=== PATIENT | male | born 1945 | race Caucasian/White ===

== ENCOUNTER 2017-08-28 09:39 | Inpatient (IN) | payer MEDICARE, OTHER ==
[~2017-08-28] VITALS: Ht 172.7 cm; Wt 96.6 kg
[~2017-08-28 09:39] MED LIST: LISINOPRIL20 MG PO; NORVASC5 MG PO; SIMVASTATIN40 MG PO; TRIAMTERENE-HC1 EAC3 PO; TYLENOL325 MG PO; VITAMIN D32000 UNI1 PO; ZITHROMAX500 MG PO
[2017-09-05] MEDS ORDERED: METFORMIN HCL500 M2 PO (11:42)
--- NOTE | 2017-09-05 13:04 | NUR ---
PT HERE TODAY FOR PREADMISSION APPOINTMENT. PT IS SCHEDULED TO HAVE A RIGHT TOTAL KNEE REPLACMENT ON 09/09/17. PT STATES HIS [facility] WILL BE HIS TRANSPORTATION WHEN HE IS DISCHARGED AND TO HIS APPOINTMENTS AT THE [facility] FOR PHYSICAL THERAPY. HE STATES HE HAS ATTENDED HIS PREOP APPT WITH PHYSICAL THERAPY EARLIER LAST MONTH. PT REPORTS HAVING ONE STEP INTO THE HOME AND MULTIPLE STEPS ONCE IN THE HOME. IT IS A THREE STORY HOME BUT HIS BEDROOM AND MAIN LIVING AREA ARE ON THE FIRST FLOOR. HE DOES HAVE A FRONT WHEELED WALKER AND WILL BRING IT TO THE HOSPITAL ON ADMISSION. HE HAS A WALK IN SHOWER AND TALL TOILET. HE DOES NOT HAVE A SHOWER CHAIR/BENCH OR A HAND HELD SHOWER HEAD BUT WILL BE LOOKING INTO OBTAINING THESE ITEMS.
--- NOTE | 2017-09-09 08:48 | NUR ---
09/09/17 0848 Elida Nova PT AWAKE AND REPORTS "NO PAIN". PT RESTING QUIETLY.
--- NOTE | 2017-09-09 09:35 | NUR ---
PATIENT ARRIVED TO MED SURG. DR. PICKARD CONSULT ADDED TO COMPUTER. SPINAL ANESTHESIA IS IN EFFECT AND PATIENT DENIES PAIN. SIPS OF WATER AND NO NAUSEA NOTED. SCD, KRYO CUFF, HEEL PROTECTORS, AND KNEE HIGH TAURUS HOSE ON. BP IS 108/55 AND NORMAL SYSTOLIC BASELINE IS 140'S. IVF INFUSING TO RIGHT HAND AT 100ML/HOUR. RT NOTIFIED THAT PATIENT IS ON 2L OF O2 AND PULSE OX. RIGHT KNEE DRESSING IS CDI.
--- NOTE | 2017-09-09 10:34 | NUR ---
PATIENT HAS GROSS MOVEMENT TO FEET, BILATERALLY. PATIENT DENIES PAIN. IV TRANSEXEMIC ACID IS INFUSING FOR 15 MINUTES. BP IS IMPROVING TO 127/61.
--- NOTE | 2017-09-09 11:18 | NUR ---
PT HAS TWO VISITORS AT BEDSIDE. REPORTS NO PAIN. VSS. BP INCREASING TO "PATIENT NORMAL". SBP 134. PT AWAKE AND ALERT, BUT SLIGHTLY DROWSY. NO NEEDS AT THIS TIME. CRYOCUFF IN PLACE. ABLE TO MOVE TOES AND LEGS. SENSATION INTACT IN LOWER EXTREMITIES. NO NAUSEA.
--- NOTE | 2017-09-09 12:38 | NUR ---
PT DROWSY. PAIN CONTROLLED NOW. VSS. 2L [address] WILL ORDER LUNCH FOR PATIENT. NO NAUSEA. ANESTHESIA IN TO SEE PT NOW.
--- NOTE | 2017-09-09 13:54 | NUR ---
PT STOOD AT SIDE OF BED AND ATTEMPTED TO VOID. UNABLE. WILL BLADDER SCAN AFTER NAUSEA SUBSIDES. ZOFRAN GIVEN FOR NAUSEA. LYING IN BED NOW WITH AT BEDSIDE.
--- NOTE | 2017-09-09 14:05 | NUR ---
ATTEMPTED TO CALL DR BOLTON TO NOTIFY OF PAIN NOT BEING CONTROLLED WITH AVAILABLE PRN PAIN MEDICATIONS. REFUSED TYLENOL. REPORTS "VICODIN IS THE ONLY THING THAT HELPS". NOTIFIED DR PICKARD. WILL TRY DR BOLTON AGAIN THIS AFTERNOON.
--- NOTE | 2017-09-09 14:14 | NUR ---
DR. PICKARD IN TO SEE PATIENT. SCOPALAMINE PATCH REMOVED FROM BEHIND RIGHT EAR, PER DR. PICKARD.
--- NOTE | 2017-09-09 14:22 | NUR ---
PATIENT BLADDER SCANNED FOR 281 ML
--- NOTE | 2017-09-09 14:55 | NUR ---
PT IN ROOM WORKING WITH PATIENT. FRESH ICE WATER AND ICE IN CRYO. NO OTHER NEEDS AT THIS TIME.
--- NOTE | 2017-09-09 15:09 | NUR ---
PT HAVING NAUSEA. REGLAN GIVEN NOW. ZOFRAN GIVEN BEFORE 1400. WORKING WITH PHYSICAL THERAPY NOW.
[2017-09-09] MEDS ORDERED: THERAPEUTIC-M1 EAC3 PO (16:14)
--- NOTE | 2017-09-09 16:59 | NUR ---
PATIENT SITTING UP IN BED EATING DINNER. CALL BUTTON IN REACH. IN ROOM. NO OTHER NEEDS AT THIS TIME.
--- NOTE | 2017-09-09 17:22 | NUR ---
PT UNABLE TO VOID. BLADDER SCAN FOR 289ML. NOT DRINKING MUCH FLUIDS. ENCOURAGED TO TAKE PO FLUIDS MORE FREQUENTLY. BATTLING SOME NAUSEA WITH MOVEMENT.
--- NOTE | 2017-09-09 17:47 | NUR ---
ACCU CHECKS. CONTINUOUS PULSE OX. 2L O2 VIA NC. ALETHEAFRAN & REGLAN FOR NAUSEA WHEN CHANGING POSITION TO SIT/STAND. DUE TO VOID. 1/2 NS @ 100. BLADDER SCAN AT 1730 = 289ML. ENCOURAGE PO INTAKE OF FLUIDS. ANCEF X2 MORE. TORADOL FOR PAIN. EPIDURAL UP AT 0800 TOMORROW. UNABLE TO AMBULATE WITH PHYSICAL THERAPY D/T NAUSEA/VOMITING.
--- NOTE | 2017-09-09 18:00 | NUR ---
PATIENT SITTING UP IN BED. IN ROOM. FRESH ICE WATER GIVEN. ICE IN CRYO. CALL BUTTON IN REACH. NO OTHER NEEDS AT THIS TIME.
--- NOTE | 2017-09-09 19:30 | NUR ---
UPDATED DR PICKARD AND CROW ON INABILITY TO VOID. 1L LR BOLUS ORDERED BY DR PICKARD. DR MARIA ON BOARD WITH PLAN. CONTINUE TO MONITOR UNTIL >500CC IN BLADDER.
--- NOTE | 2017-09-09 20:47 | NUR ---
PT LAYING IN BED WATCHING TV. NO APPARENT DISTRESS AT THIS TIME. DENIES PAIN. ALERT AND ORIENTED X4. DENIES URGE TO VOID. BLADDER SCAN SHOWS 352 IN BLADDER. PT COMPLAINS OF DIZZINESS WHEN MOVING HIS HEAD, BUT REPORTS THAT IT IS BETTER THAN BEFORE. FLAT AFFECT. ANSWERS QUESTIONS APPROPRIATLY. DRESSING TO RIGHT KNEE IS CLEAN DRY AND INTACT, NO SHADOWING. TEDS, SCD'S, HEEL PROTECTORS, CRYO CUFF IN PLACE. CRYO CUFF FILLED WITH ICE. FRESH ICE WATER AT BEDSIDE. CALL LIGHT IN REACH. NO FURTHER NEEDS AT THIS TIME. AT BEDSIDE.
--- NOTE | 2017-09-09 21:16 | NUR ---
PT STOOD AT BEDSIDE TO ATTEMPT VOIDING, NO URINE OUTPUT AT THIS TIME. PT BECAME VERY NAUSEOUS AFTER HE SAT DOWN, HAD 300MLS EMESIS. GAVE REGLAN FOR NAUSEA. WILL CONTINUE TO MONITOR PT.
--- NOTE | 2017-09-09 23:41 | NUR ---
pt up to attempt to void, tolerating standing with walker at bedside well. pt unable to void. bladder scan showed 489mls. placed gallo. gallo put out 650mls of orange colored urine right away. pt in bed. denies pain. denies nausea. fresh ice water given. call light in reach. all dr chavez orders in place. no further needs.
--- NOTE | 2017-09-10 01:38 | NUR ---
PT APPEARS TO BE SLEEPING. RR WNL AND UNLABORED. LIGHTS AND TV OUT IN ROOM.
--- NOTE | 2017-09-10 02:52 | NUR ---
PT WOKE WHEN ENTERING ROOM. CONTINUES TO DENY PAIN AND NAUSEA. GAVE SCHEDULED TORADOL AND EDUCATED PT ON PAIN MANAGMENT AND THE IMPORTANENCE LETTING THE RN KNOW SOON HE STARTS TO HAVE PAIN. PT APPEARS TO BE FEELING BETTER, TALKING AND JOKING WITH NURSE. CRYO CUFF RE-FILLED WITH ICE. OUTPUT IS QUANTITY SUFFICIENT AND PT IS TAKING PO WELL WITH NO NAUSEA. IV FLUIDS DISCONTINUES. PT HAS NO FURTHER NEEDS AT THIS TIME. CALL LIGHT IN REACH.
--- NOTE | 2017-09-10 04:30 | NUR ---
PT APPEARS TO BE SLEEPING. RR WNL AND UNLABORED.
--- NOTE | 2017-09-10 05:49 | NUR ---
PLACED ANGEL EARLY IN SHIFT DUE TO PT UNABLE TO VOID. ANGEL DRAINING QUANTITY SUFFICIENT. PAIN WELL CONTROLLED WITH SCHEDULED TORADOL, RATING PAIN AT 0/10 ALL SHIFT. REGLAN GIVEN X1 BEGINNING OF SHIFT FOR NAUSEA WHEN STANDING AT BEDSIDE, NO NAUSEA SINCE. DRESSING IS CLEAN DRY AND INTACT, NO SHADOWING. ALL DR MARIA ORDERS IN PLACE OVERNIGHT. PT PLEASENT, ALERT AND ORIENTED X4, AND COOPERATIVE.
--- NOTE | 2017-09-10 07:06 | NUR ---
DC'D JEANNE. PT TOLERATED WELL. GAVE FRESH ICE WATER. CALL LIGHT IN REACH. NO NAUSEA. DENIES PAIN. ORDERED BREAKFAST.
--- NOTE | 2017-09-10 07:45 | NUR ---
PATIENT SITTING UP IN BED EATING BREAK FAST. IN ROOM. TALKED TO PATIENT ABOUT GETTING UP TO THE CHAIR AND WASHING UP AFTER EATING. NO OTHER NEEDS AT THIS TIME.
--- NOTE | 2017-09-10 08:17 | OR ---
[facility] [address], [place] [address] Signed DATE OF OPERATION: 09/09/2017 SURGEON: Jin Tavares MD PREOPERATIVE DIAGNOSIS: Degenerative joint disease, right knee. POSTOPERATIVE DIAGNOSIS: Degenerative joint disease, right knee. PROCEDURE PERFORMED: Right total knee replacement with computer navigation. INTERNET SYSTEMS ADMINISTRATOR: Iesha Carrington PA-C. Iesha was present for the entire procedure, was critical for positioning, retraction, and wound closure. IMPLANTS: Nitin Triathlon size 6 femur, size 5 tibia, 13 mm insert and 35 patella. BRIEF HISTORY: Yoel is a 72-year-old gentleman with progressive worsening of osteoarthritis in both knees. He elected to proceed with the right knee first. Risks, benefits and alternatives were discussed with him at length. DESCRIPTION OF PROCEDURE: He was taken to the operating room. After par conference, he was placed on the operating room table. All downside pressure points were well padded. After adequate anesthesia, his leg was placed in a well-padded leg uriarte and placed on a hip bump. The leg was then prepped and draped in a standard sterile fashion. The leg was exsanguinated with Esmarch bandage. Tourniquet inflated to 250 mmHg. Standard anterior approach through a curved incision was taken through the skin and subcutaneous tissue. Median parapatellar arthrotomy was performed. The infrapatellar fat pad was excised. The MCL was elevated to sleeve around the posterior medial corner. The menisci were removed. The ACL was transected. PCL was found to be in good shape. The knee was flexed. The navigation guide was then pinned to the distal femur and the femur was registered with the computer. The distal femoral cutting guide was then pinned in neutral alignment and the distal femoral cut was made. Distal femur sized to a 6. Osteophytes were removed. The AP cutting block was aligned with the epicondylar axis and the anterior, posterior and chamfer cuts were made. Attention was turned to the Electronically Signed By: JIN TAVARES MD 09/10/17 0817 PATIENT NAME: YOEL PALOMINO OPERATIVE REPORT DATE OF : 47 PHYSICIAN: JIN TAVARES MD REPORT #: [id number] REPORT IS CONFIDENTIAL AND NOT TO BE RELEASED WITHOUT AUTHORIZATION [facility] [address] [place], [place] [address] Signed proximal tibia. Navigation guide again was pinned to the proximal tibia and the tibia was registered with the computer. The cutting block was then set for 2 mm removal of the medial side. Tibial cut was made with care taken to protect the patellar tendon and the MCL. Posterior release performed off the femur. Posterior osteophytes were removed. The flexion-extension gaps were sized, found to be symmetric at 13 mm. The bone was pulse lavaged, packed with dry Ray-Shanice and cement was mixed. The implants were obtained and the cement was mixed and placed on the implants and the bone surfaces. Tibia was impacted into position first followed by the polyethylene. All excess cement was removed. The femur was then impacted into position and the knee was extended and nicely loaded. Again excess cement was removed. The patella was clamped and any remaining cement was removed. The cement was allowed to harden for 13 minutes. Knee was then flexed and the remaining cement was removed using osteotomes. The periarticular soft tissues were injected with 100 mL ropivacaine and Toradol mixture. The arthrotomy was then closed using #2 Stratafix, the subcutaneous tissue with 1 Stratafix and the skin with miguel. The wound was dressed with a Mepilex Ag dressing, ABD and Trevon wrap. He tolerated the procedure well. All sponge, needle, and instrument counts were correct. Jin Tavares MD BA/MODL /[id number] Electronically Signed By: JIN TAVARES MD 09/10/17 0817 PATIENT NAME: YOEL PALOMINO MADDIE OPERATIVE REPORT DATE OF : 47 PHYSICIAN: JIN TAVARES MD REPORT #: [id number] REPORT IS CONFIDENTIAL AND NOT TO BE RELEASED WITHOUT AUTHORIZATION
--- NOTE | 2017-09-10 08:45 | NUR ---
AT BEDSIDE. PT SITTING UP IN BED. NO NAUSEA NOW. ZOFRAN GIVEN PROPHYLACTICALLY FOR PHYSICAL THERAPY. NO PAIN NOW. ATE 100% OF BREAKFAST. NO DRAINAGE ON DRESSING. SCDs, TEDs IN PLACE.
--- NOTE | 2017-09-10 09:39 | NUR ---
PATIENT UP TO CHAIR WITH ONE PERSON ASSIST WITH FWW. BED BATH COMPLETE. ORAL CARE DONE. LINENS CHANGED. RT IN ROOM TO SEE PATIENT. NO OTHER NEEDS AT THIS TIME.
--- NOTE | 2017-09-10 10:13 | NUR ---
PT WORKING WITH PHYSICAL THERAPY AT 1000. AMBULATING IN HALLS. APPEARS TO HAVE GOOD PAIN CONTROL AND STEADY WHEN WALKING.
--- NOTE | 2017-09-10 12:16 | NUR ---
PATIENT SITTING UP IN CHAIR READING THE NEWSPAPER. ICE IN CRYO. NO OTHER NEEDS AT THIS TIME. CALL BUTTON IN REACH.
--- NOTE | 2017-09-10 13:59 | NUR ---
PT SITTING IN CHAIR-KNEE ICED. HE'S ALERT, ORIENTED AND SUPPORTED BY HIS . IT TOOK A MOMENT, BUT GOT HIM INTO A CONVERSATION. HE SAYS HE HAS NO PAIN, EVEN AFTER P.T. ONE MORE SESSION THIS AFTERNOON. EXPRESS THAT HE AND HIS ARE VERY PLEASED WITH THE CARE HERE AT [facility]. SHE COMMENTED ON HOW GOOD THE CAFETERIA FOOD IS. PT SAYS HE IS READY TO GO HOME-HE IS PLANNING ON TOMORROW. I EXTENDED A BLESSING, WILL CONTINUE TO FOLLOW
--- NOTE | 2017-09-10 14:40 | NUR ---
PATIENT SITTING UP IN CHAIR. FRESH ICE WATER GIVEN. CALL BUTTON IN REACH. NO OTHER NEEDS AT THIS TIME.
--- NOTE | 2017-09-10 17:39 | NUR ---
ACCU CHECKS-- NO COVERAGE NEEDED TODAY. URINATING WELL TODAY. APPROVED BY PHYSICAL THERAPY FOR PATIENT TO HAVE BATHROOM PRIVILEGES. OXYCODONE AND TORADOL SCHEDULED. RH IV S/L. NO NAUSEA TODAY. WORKED WITH PHYSICAL THERAPY X2 TOLERATED WELL. PAIN WELL CONTROLLED. ON ROOM AIR. RIGHT KNEE DRESSING C/D/I.
--- NOTE | 2017-09-10 18:30 | NUR ---
PATIENT BACK TO BED WITH STAND BY ASSIST WITH FWW. FRESH ICE WATER GIVEN. ICE IN CRYO. NO OTHET NEEDS AT THIS TIME. IN ROOM. CALL BUTTON IN REACH.
--- NOTE | 2017-09-10 21:11 | NUR ---
PT SITTING UP IN BED, WATCHING TV. ALERT AND ORIENTED X4, PLEASENT DEMEANOR. RATES PAIN AT 2/10, GAVE SCHEDULED TORADOL AND OXYCODONE. NO NAUSEA. DRESSING IS CLEAN DRY AND INTACT, NO SHADOWING. ALL DR MARIA ORDERS IN PLACE. ICE IN CRYO CUFF. INCENTIVE SPIROMETER ON BEDSIDE TABLE, PT REPORTS USING THROUGHOUT THE DAY. NO FURTHER NEEDS. CALL LIGHT IN REACH.
--- NOTE | 2017-09-10 23:02 | NUR ---
pt appears to be sleeping. rr wnl and unlabored. lights and tv off in room.
--- NOTE | 2017-09-10 23:41 | NUR ---
GAVE WARM BLANKET PER PT REQUEST. PT DENIES PAIN AT THIS TIME. NO FURTHER NEEDS. IN ROOM. LIGHTS AND TV OFF IN ROOM.
--- NOTE | 2017-09-11 00:48 | NUR ---
PT REPORTS 6/10 PAIN. DILAUDID GIVEN. WILL CONTINUE TO MONITOR. CALL LIGHT AND PERSONAL ITEMS WITHIN REACH.
--- NOTE | 2017-09-11 03:05 | NUR ---
PT STATES "ITS WAY BETTER NOW," IN REGARDS TO PAIN. RATES PAIN AT 2/10. GAVE SCHEDULED OXYCODONE AND TORADOL. PT HAS NO FURTHER NEEDS.
--- NOTE | 2017-09-11 05:25 | NUR ---
CRYO CUFF REFILLED.
--- NOTE | 2017-09-11 05:33 | NUR ---
PT HAD UNEVENTFUL NIGHT. SLEPT WELL. ALERT AND ORIENTED X4, PLEASENT AND COOPERATIVE. SCHEDULED AND PRN X1 PAIN MEDICATIONS COVERED PAIN WELL. NO NAUSEA. VOIDING WELL. AMBULATING WITH FWW AND 1 PERSON ASSIST, TOLERATING VERY WELL, STEADY ON FEET. DRESSING TO RIGHT KNEE IS CLEAN DRY AND INTACT. ALL DR MARIA ORDERS IN PLACE OVERNIGHT. CALLS APPROPRIATLY.
--- NOTE | 2017-09-11 05:47 | NUR ---
PT APPEARS TO BE SLEEPING. RR WNL AND UNLABORED.
--- NOTE | 2017-09-11 08:14 | NUR ---
patient up to chair with stand by assist. in to see patient. hands and face washed. Patient refused bath. Patient eating breakfast. call button in reach. in room. Fresh ice water given. No other needs at this time.
[2017-09-11] MEDS ORDERED: TAMSULOSIN HCL0.4 MG PO (08:18)
[2017-09-11] MEDS ORDERED: XARELTO10 MG PO (08:18)
[2017-09-11] MEDS ORDERED: HYDROMORPHONE HC4 MG PO (08:18)
[2017-09-11] MEDS ORDERED: MIRALAX17 GM PO (08:18)
[2017-09-11] MEDS ORDERED: OXYCODONE HCL5 MG PO (08:18)
--- NOTE | 2017-09-11 08:58 | NUR ---
PATIENT UP IN THE CHAIR RESTING, CRYO CUFF ON THE RIGHT KNEE AND PAIN CURRENTLY AT A 3/10. PATIENT IS DOING WELL AND AM MEDICATION GIVEN AT THIS TIME. IV IN THE HAND DC'D TIP INTACT NO REDDNESS OR SWELLING NOTED.
--- NOTE | 2017-09-11 09:33 | NUR ---
PATIENT UP AMBULATING WITH PHYSICAL THERAPY
--- NOTE | 2017-09-11 09:49 | NUR ---
PATIENT REPORTS NO PAIN AT THIS TIME.
--- NOTE | 2017-09-11 10:15 | NUR ---
PATIENT RESTING IN CHAIR WITH LEGS ELEVATED AND EYES CLOSED. CRYO ON. FRESH ICE WATER GIVEN. IN ROOM. CALL BUTTON IN REACH. NO OTHER NEEDS AT THIS TIME.
--- NOTE | 2017-09-11 11:10 | NUR ---
PATIENT'S BLOOD SUGAR CHECKED AT THIS TIME, NO INSULIN REQUIRED FOR SUGAR LEVEL OF 129, PATIENT IS GETTING UP TO WORK WITH PHYSICAL THERAPY FOR THE SECOND TIME TODAY, HE REPORTS NO PAIN AT THIS TIME.
--- NOTE | 2017-09-11 11:50 | NUR ---
PATIENT GIVEN D/C INSTRUCTIONS, QUESTIONS ANSWERED, PHARMACY HAS BEEN IN TO SPEAK WITH THE PATIENT REGARDING D/C INSTRUCTIONS ALSO.
--- NOTE | 2017-09-11 12:01 | NUR ---
FAXED CHART NOTES TO [facility] PT INCLUDING FACESHEET, ORDER, H AND P, OP NOTE, CONSULT, PROG NOTES, PT AND OT EVAL AND NOTES. CALLED AND TALKED WITH CHANDRIKA AT [facility].
--- NOTE | 2017-09-11 14:47 | NUR ---
CONNECTED WITH PT AND HIS THEY WERE LEAVING. THEY BOTH WERE EXCITED TO BE DC'D AND HEADING FOR HOME. GOD BLESS THEM
== END 2017-09-11 12:15 | disposition home or self-care (01) | DRG 470 ==
LOC: MS 09-09 05:45 → DSVR 09-09 05:45 → MS 09-09 06:45
PROVIDERS: ADMIT Specialist
PROC: 3E0T3BZ Introduction of Anesthetic Agent into Peripheral Nerves and Plexi, Percutaneous Approach (ICD-10-PCS; 2017-09-09)
PROC: 0SRC0J9 Replacement of Right Knee Joint with Synthetic Substitute, Cemented, Open Approach (ICD-10-PCS; principal; 2017-09-10)
DX: M17.11 Unilateral primary osteoarthritis, right knee (principal); I10 Essential (primary) hypertension; E11.9 Type 2 diabetes mellitus without complications; E78.00 Pure hypercholesterolemia, unspecified; G89.18 Other acute postprocedural pain
CPT/HCPCS: 01400; 36415; 64447; 76942; 80048; 85025; 94762; 97110; 97116; 97162; C1713; C1776; J0690; J0735; J1100; J1885; J2250; J2274; J2405; J2704; J2765; J3010; J7120

== ENCOUNTER 2018-10-06 11:07 | Inpatient (IN) | payer MEDICARE, OTHER ==
[~2018-10-06] VITALS: Ht 172.7 cm; Wt 104.3 kg
[~2018-10-06 11:07] MED LIST changes: +HYDROMORPHONE HC4 MG PO; +METFORMIN HCL500 M2 PO; +MIRALAX17 GM PO; +OXYCODONE HCL5 MG PO; +TAMSULOSIN HCL0.4 MG PO; +THERAPEUTIC-M1 EAC3 PO; +XARELTO10 MG PO
[2018-10-07] MEDS ORDERED: LISINOPRIL20 MG PO (11:56)
--- NOTE | 2018-10-07 12:11 | NUR ---
PATIENT HERE TODAY FOR PREADMISSION APPOINTMENT. HE IS SCHEDULED TO HAVE A LEFT TOTAL KNEE ARTHROPLASTY ON 10/20/18. IT IS RECALLED HE HAD A RIGHT TOTAL ARTHROPLASTY ABOUT A YEAR AGO. HIS ZACHARY WILL BE HERE TO TRANSPORT HIM HOME WHEN HE IS DISCHARGED AND TO APPOINTMENTS NEEDED. THEY HAVE ON STEP INTO THE HOME AND MULITIPLE STEPS INSIDE THE HOME TO DIFFERENT LEVELS. HE HAS ACCESS TO A WALKER THAT HE WILL OBTAIN AND DID NOT USE A SHOWER CHAIR OR OTHER ITEMS AFTER HIS LAST SURGERY. HE HAS A WALK IN SHOWER WITH HAND HELD SHOWER HEAD. HE WILL BE TRAVELING TO [place] BEFORE SURGERY SO HE WILL CHECK IN WITH [facility] TODAY TO MAKE HIS APPOINTMENTS. HE WAS INSTRUCTED TO CONTACT DR MARIA OFFICE REGARDING MEDICATIONS TO TAKE DAY OF PROCEDURE. HE REPORTS HAVING TROUBLE WITH LOW BLOOD PRESSURE AFTER HIS LAST JOINT REPLACEMENT. THIS INFORMATION WILL BE SENT TO DR MARIA OFFICE AND CASE MANAGEMENT FOR FURTHER FOLLOW UP.
--- NOTE | 2018-10-20 08:51 | NUR ---
10/20/18 0851 Tatiana Zuniga 0832 PT ARRIVED IN PACU SLEEPY. CRYO CUFF PLACED ON L KNEE PER DR ORDERS. BLOOD SUGAR 151. 0845 PT AWAKE WITH NO C/O'S. SPINAL LEVEL AT T-10.
--- NOTE | 2018-10-20 10:31 | NUR ---
PATIENT RESTING IN BED. IN ROOM. VITAL SIGNS DONE. CALL LIGHT WITHIN REACH. NO OTHER NEEDS AT THIS TIME
--- NOTE | 2018-10-20 12:12 | NUR ---
PATIENT CALLS TO USE BATHROOM. PATIENT WALKS TO BATHROOM USING A WALKER. TWO PERSON ASISSTING. PATIENT BACKS TO BED. PATIENT'S LUNCH ORDERED. CALL LIGHT WITHIN REACH. NO OTHER NEEDS AT THIS TIME
--- NOTE | 2018-10-20 12:31 | NUR ---
PT REPORTS PAIN, BUT NOTHING HE CAN'T HANDLE. HE DECLINED PAIN MEDS MULTIPLE TIMES. PT STATED THAT HE WILL CALL WHEN HE FEELS THE NEED FOR MORE PAIN CONTROL. PT STATES THAT THIS SURGERY FEELS DIFFERENT, NO PROJECTILE VOMITING. [facility] CALLED WITH QUESTIONS ABOUT PT'S ACETAMINIPHEN ORDER. CALL PLACED TO PACU FOR DR MARIA TO CALL [facility]. ORDER FOR IV ACETAMINIPHEN PRN AND PO SCHEDULED, [facility] HAS QUESTIONS.
--- NOTE | 2018-10-20 12:49 | OR ---
[facility] [address] [place], [place] [address] Signed DATE OF OPERATION: 10/20/2018 SURGEON: Jin Tavares MD PREOPERATIVE DIAGNOSIS: Degenerative joint disease, left knee. POSTOPERATIVE DIAGNOSIS: Degenerative joint disease, left knee. PROCEDURE PERFORMED: Left total knee arthroplasty with computer navigation. FLIGHT CONTROL MANAGER: Iesha Carrington PA-C. Iesha was present in critical positioning, retraction, and wound closure. ANESTHESIA: Spinal. BLOOD LOSS: 175 mL. TOURNIQUET TIME: Zero. IMPLANTS: Nitin Triathlon size 6 femur, size 5 tibia, 13 mm insert, and 35 patella. BRIEF HISTORY: Yoel is a 73-year-old gentleman with painful ambulation . He had undergone right total knee with excellent success and wished to proceed with a left. DESCRIPTION OF PROCEDURE: Once consent was obtained, he was taken to the operating room. After adequate anesthesia, he was placed on operating table. All downside pressure points were well padded. The leg was placed in well-padded proximal thigh tourniquet, and prepped and draped in a standard sterile fashion. Standard anterior approach was taken through skin and subcutaneous tissue. All bleeders were cauterized as we went. Median parapatellar arthrotomy was performed and the infrapatellar fat pad was excised. The MCL was Portions of this report were created using voice recognition software. There may be inadvertent computer error. Please read with context in mind. If there are any questions, please contact me. Electronically Signed By: JIN TAVARES MD 10/20/18 1249 PATIENT NAME: YOEL PALOMINO OPERATIVE REPORT DATE OF : 47 REPORT #: [id number] PHYSICIAN: JIN TAVARES MD PCP: NO PRIMARY CARE PHYSICIAN REPORT IS CONFIDENTIAL AND NOT TO BE RELEASED WITHOUT AUTHORIZATION [facility] [address] [place], [place] [address] Signed elevated to sleeve around the posteromedial corner. The anterior horns of menisci were transected and the ACL was transected. The PCL was intact. The knee was then flexed, navigation guide was pinned to the distal femur, and the femur was registered with the computer. The cutting block was then pinned in neutral alignment and the distal femoral cut was made. The distal femur sized to a 6 and all osteophytes were removed. The AP cutting block was then pinned in line with epicondylar axis. The anterior, posterior, and chamfer cuts were made. The attention was then turned to proximal tibia. The navigation guide was pinned to the proximal tibia and the tibia was registered with the computer. The cutting block was then pinned in neutral alignment. The cut was made with care taken to protect the patellar tendon and MCL. The bone was excised as were any meniscal remnants. Posterior osteophytes were removed off the femur and posterior release performed. Flexion-extension gaps were sized and found to be symmetric at 13 mm. The trials were then put on and the knee was extended, and taken through range of motion. He was found to be stable throughout. The patella was cut sized and drilled for 35 patella. The distal femoral drill holes were made in the proximal tibial. Keel punch was used. Bone surfaces were pulse lavaged and packed with a hydrogen peroxide soaked sponge. The cement was mixed and reached proper consistency. It was placed on all implants and all bone surfaces. Tibia was impacted in position first followed by polyethylene. All excess was removed. The femur was then impacted in position. Again, the remaining overflow was removed. The knee was extended and nicely loaded, and the patella was clamped. Again, any overflow was removed. Once the cement had hardened, the knee was flexed. The remaining cement was removed using osteotomes. The capsule and periarticular soft tissues were injected with 100 mL ropivacaine and Toradol mixture. The On-Q pump was then placed percutaneously into the adductor canal from inside the knee. The knee was washed out throughout the procedure. A total of 3 L of antibiotic irrigation was used. The arthrotomy was closed using #2 Stratafix, 0 Stratafix for the subcutaneous tissue, and Dermabond mesh for the skin. The wound was dressed with a GLORIA wound dressing and Trevon wrap. He was taken to the recovery room in satisfactory condition. All sponge, needle, and instrument counts were correct. Jin Tavares MD BA/MODL /[id number] Portions of this report were created using voice recognition software. There may be inadvertent computer error. Please read with context in mind. If there are any questions, please contact me. Electronically Signed By: JIN TAVARES MD 10/20/18 1249 PATIENT NAME: YOEL PALOMINO OPERATIVE REPORT DATE OF : 47 REPORT #: [id number] PHYSICIAN: JIN TAVARES MD PCP: NO PRIMARY CARE PHYSICIAN REPORT IS CONFIDENTIAL AND NOT TO BE RELEASED WITHOUT AUTHORIZATION [facility] [address] [place] [address] Signed Copies: ~ Portions of this report were created using voice recognition software. There may be inadvertent computer error. Please read with context in mind. If there are any questions, please contact me. Electronically Signed By: JIN TAVARES MD 10/20/18 1249 PATIENT NAME: YOEL PALOMINO OPERATIVE REPORT DATE OF : 47 REPORT #: [id number] PHYSICIAN: JIN TAVARES MD PCP: NO PRIMARY CARE PHYSICIAN REPORT IS CONFIDENTIAL AND NOT TO BE RELEASED WITHOUT AUTHORIZATION
--- NOTE | 2018-10-20 13:31 | NUR ---
PATIENT RESTING IN BED. PATIENT WALKS TO USE BATHROOM USIGN A WALKER. ONE PERSON ASSISTING. PATIENT BACKS TO BED. IN ROOM. VITAL SIGNS AND I&O DONE. CALL LIGHT WITHIN REACH. NO OTHER NEEDS AT THIS TIME
--- NOTE | 2018-10-20 14:26 | NUR ---
PT UP WALKING WITH PHYSICAL THERAPY. PT STATED HE ISN'T "HURTING MUCH". PT AGREED TO TAKE ONE OXY TABLET. IV TYLENOL HANGING. PT STATES THIS SURGERY IS "SO MUCH BETTER THAN LAST TIME."
--- NOTE | 2018-10-20 14:45 | NUR ---
PATIENT RESTING IN BED. IN ROOM. CRYO FILLED. CALL LIGHT WITHIN REACH.NO OTHER NEEDS AT THIS TIME
--- NOTE | 2018-10-20 15:37 | NUR ---
PT RESTING AFTER PHYSICAL THERAPY. PT STATED 5MG OXY EFFECTIVE FOR PAIN CONTROL DURING AND AFTER THERAPY. PT STATED NO NAUSEA, NO LIGHTHEADEDNESS, NO ITCHING. CYROCUFF, TAURUS HOSE, ON-Q PUMP, AND SCD IN PLACE. NO NEW DRAINAGE ON DRESSINGS.
--- NOTE | 2018-10-20 16:16 | NUR ---
CALLED DR PICKARD RE: PT ACCUCHECK. DR PICKARD WILL LOOK AT THE CHART AND TAKE CARE OF ORDERS.
--- NOTE | 2018-10-20 17:05 | NUR ---
Medications reconciled using pharmacy records and patient interview. Patient takes metformin ER 1000mg daily, rather than 500mg daily
--- NOTE | 2018-10-20 17:46 | NUR ---
REINFORCED SEAL OF PICCO DRESSING. GREEN LIGHT WAS FLASHING BUT UNIT WAS BUZZING. SEAL REINFORCED AROUND WHERE ON-Q TUBING WAS COILED. GREEN LIGHT CONTINUED TO FLASH INDICATING GOOD SEAL. PT REPORTS NO PAIN AT REST, NO NAUSEA. PT HAS STATED SEVERAL TIMES THAT THIS SURGERY HAS BEEN "MUCH BETTER" THAN THE LAST ONE. PT UP VOIDING WELL.
--- NOTE | 2018-10-20 18:00 | NUR ---
PATIENT RESTING IN BED. VITAL SIGNS AND I&O DONE. CALL LIGHT WITHIN REACH. NO OTHER NEEDS AT THIS TIME
--- NOTE | 2018-10-20 19:00 | NUR ---
CHARGE ROUNDING DONE, PATIENT IN BED. AT BEDSIDE. REVIEWED CALLING FOR ASSISTANCE PRIOR TO AMULATING, PATIENT AGREES TO DO SO. NO CONCERNS AT THIS TIME.
--- NOTE | 2018-10-20 19:05 | NUR ---
BEDSIDE REPORT RECEIVED FROM OFFGOING RN. PT UP TO USE THE BATHROOM AND BACK TO BED DURING REPORT. DENIES FURTHER NEEDS AT THIS TIME. CALL LIGHT WITHIN REACH.
--- NOTE | 2018-10-20 20:30 | NUR ---
PT ASSESSMENT COMPLETE. PT DENIES PAIN, NAUSEA, SOB. PT ALERT AND ORIENTED. PT AT BEDSIDE. PT JOKING WITH WRTIER AND . GLORIA DRESSING TO L KNEE WITH SMALL AMOUNT OF RED SHADOWING PRESENT. ABD AND JAMAR OVER GLORIA. GREEN LIGHT FLASHING ON GLORIA BOX. CMS INTACT. CRYO CUFF TO L KNEE. TEDS, SCDS, AND PRESENT BILATERALLY. PT REQUESTING SNACK, DIET COKE AND SF PUDDING PROVIDED. DM II DIET EDUCATION PROVIDED. PT'S STATES SHE NEVER REALLY LEARNED ABOUT HOW TO CHANGE PT'S DIET FOR DIABETES. PT STATES IT IS NOT AN ISSUE. PT DENIES FURTHER NEEDS AT THIS TIME. CALL LIGHT IN REACH.
--- NOTE | 2018-10-20 22:20 | NUR ---
SCHEDULED TYLENOL ADMINISTERED. PT NOTIFIES SOURCING ANALYST THAT GLORIA BOX FLASHING ORANGE. ORANGE LIGHT NOTED TO BE FLASHING ABOVE AIR LEAK INICATOR. OPSITE ADDED TO DRESSING, AND SUCTION RE-INITIATED. GREEN LIGHT FLASHING AT THIS TIME. INTERMITTENT BUZZING SOUND PRESENT. PT DENIES FURTHER NEEDS. CALL LIGHT IN REACH. SLEEPING ON COUCH IN ROOM.
--- NOTE | 2018-10-20 23:15 | NUR ---
PT ASSESSMENT COMPLETE. PT DENIES PAIN, NAUSEA, OR SOB AT THIS TIME. DRESSING TO L KNEE D/I. SMALL AMOUNT OF RED SHADOWING UNCHANGED FROM PREVIOUS. GREEN LIGHT FLASHING ON PIC BOX, INTERMITTENT BUZZING NOISE PRESENT. CMS INTACT. PT DENIES NUMBNESS OR TINGLING. TEDS, SCD'S BILATERALLY. CRYO TO L KNEE. PT UP TO USE THE BATHROOM AND BACK TO BED WITH 1 PA AND FWW. PT TOLERATED WELL. PT DENIES FURTHER NEEDS AT THIS TIME. CALL LIGHT IN REACH. SLEEPING ON COUCH.
--- NOTE | 2018-10-21 01:45 | NUR ---
PT RESTING IN BED WITH EYES CLOSED. RESPIRATIONS EVEN AND UNLABORED. PT APPEARS TO BE SLEEPING SA02 92%. CALL LIGHT IN REACH. PT'S SLEEPING ON COUCH.
--- NOTE | 2018-10-21 01:56 | NUR ---
V/S AND I&O DONE AND CHARTED BY FLOAT COUTURE ALTERATIONS DRESSMAKER AND THIS COUTURE ALTERATIONS DRESSMAKER. CRYO CUFF REFILLED.
--- NOTE | 2018-10-21 04:11 | NUR ---
PT ASSESSMENT COMPLETE. PT WAKES EASILY WHEN RADIO TESTER ENTERS THE ROOM. PT DENIES PAIN, NAUSEA, OR SOB. DRESSING TO L KNEE CONTINUES D/I. GLORIA BOX FLASHING GREEN, CONTINUES TO MAKE INTERMITTENENT BUZZING SOUND. CMS INTACT, PT DENIES NUMBNESS OR TINGLING. ALL PRECAUTIONS REMAIN IN PLACE. PT DENIES FURTHER NEEDS AT THIS TIME. AWAKE ON COUCH IN ROOM. CALL LIGHT IN REACH.
--- NOTE | 2018-10-21 05:56 | NUR ---
PT SLEPT WELL THIS SHIFT. PAIN WELL CONTROLLED WITH SCHEDULED MEDICATIONS. NO PRN'S REQUIRED THIS SHIFT. PT DENIES NAUSEA, SOB THROUGHOUT THE NIGHT. GLORIA DRESSING D/I WITH SMALL AMOUNT OF RED SHADOWING THAT HAS BEEN UNCHANGED THROUGHOUT THE NIGHT. AIR LEAK LIGHT FLASHING EARLY IN SHIFT. DRESSING REINFORCED WITH OPSITE, GLORIA BOX WITH GREEN OK LIGHT SINCE. CMS INTACT. TEDS, SCD'S, HEEL PROTECTORS BILATERALLY. CRYOCUFF TO L KNEE. ON Q PUMP PRESENT. 1 PA WITH FWW. PT WALKING TO BATHROOM TO USE URINAL. UO QS. IV SL.
--- NOTE | 2018-10-21 06:55 | NUR ---
BEDSIDE HANDOFF REPORT RECEIVED FROM ASSOCIATE OF SCIENCE IN NURSING RN. PT RESTING IN BED. PT DENIES NEEDS AT THIS TIME. PT DENIES PAIN.
--- NOTE | 2018-10-21 08:30 | NUR ---
PT RESTING IN BED, AT BEDSIDE. PT RATING PAIN 1/10 AT REST, 4/10 WITH ACTIVITY/LEG EXERCISES. PT ON ROOM AIR, LUNG SOUNDS CLEAR, DENIES SOB. PT TOLERATING REGUALR DIET, DENIES NAUSEA, BG 128, SS INSULIN HELD, BOWEL TONES ACTIVE. PT SALINE LOCKED. PT WITH LEFT KNEE GLORIA DRESSING, SMALL AMOUNT OF DRAINAGE, ON Q PUMP IN PLACE. SCDS, TAURUS HOSE, CRYOCUFF IN PLACE, PT REFUSING HEEL PROTECTORS. CMS INTACT, WIHTOUT EDEMA, PULSES PALPABLE, DENIES NUMBNESS/TINGLING. PT SBA WITH WALKER TO BATHROOM, VOIDING QS, HAD BM. PT ASSISTED BACK TO BED. PT DENIES OTHER NEEDS AT THIS TIME. DISCUSSED PLAN OF CARE AND PAIN MANAGEMENT.
--- NOTE | 2018-10-21 11:14 | NUR ---
PT THANKFUL I WASN'T P.T. RESTING UP, KNOWS WHAT TO EXPECT. OTHER KNEE HAS ALSO BEEN REPLACED. GOOD ATTITUDE, POSITIVE VISIT. PT THANKED ME FOR COMING BY AND WILL CONTINUE TO FOLLOW NEEDED
--- NOTE | 2018-10-21 11:30 | NUR ---
PT COMPLAINT OF NAUSEA, GIVEN 4MG PO ZOFRAN PER ORDER. PT PROVIDED WITH COOL CLOTH TO NECK. PT DENIES OTHER NEEDS AT THIS TIME.
--- NOTE | 2018-10-21 12:03 | NUR ---
PT STATES NAUSEA IMPROVING, NOW EATING LUNCH. PT GIVEN 1 UNITS SS HUMALOG FOR BG 154. PT DENIES OTHER NEEDS AT THIS TIME.
--- NOTE | 2018-10-21 12:16 | NUR ---
MR CANDELARIO STATES THAT HE ALREADY HAS A FRONT WHEELED WALKER AT HOME AND HAS ALREADY MADE AN APPT FOR HIS FOLLOW UP APPT WITH PT AT [facility] OP PT. DENIES OTHER ISSUES AT THIS TIME.
--- NOTE | 2018-10-21 14:10 | NUR ---
PT COMPLETIGN THERAPY WITH OT. RESTING IN BED. PT RATING PAIN 4/10 TO LEFT KNEE, GIVEN SCHEDULED TYLENOL AND GABAPENTIN PER ORDER. LEFT KNEE DRESSING WITH A SMALL INCREASE IN SANGUINOUS DRAINAGE. PT DENIES NAUSEA AT THIS TIME. PT DENIES OTHER NEEDS AT THIS TIME.
--- NOTE | 2018-10-21 16:50 | NUR ---
PT GIVEN 1 UNIT SS HUMALOG FOR BG 159. PT GIVEN SCHEDULED CELEBREX, PT RATING PAIN 2/10. PT ASSISTED TO BATHROOM, SBA WITH WALKER. PT DENIES OTHER NEEDS AT THIS TIME.
--- NOTE | 2018-10-21 17:33 | NUR ---
PT ON ROOM AIR, LUNG SOUNDS CLEAR. PAIN WELL CONTROLLED WITH CELEBREX, TYLENOL AND ON Q PUMP, DID NOT REQUIRE ANY PO NARCOTICS TODAY. PT SBA WITH WALKER, AMBULATED IN HALLS WITH P.T. AND COMPLETED STAIRS. GLORIA DRESSING WITH SMALL AMOUNT OF SANGUINOUS DRAINAGE. SCDS, TAURUS QUIÑONES, CRYOCUFF, PT REFUSING HEEL PROTECTOS. CMS INATCT, WITHOUT EDEMA. TOLERATING ADA DIET, REQUIRED 1 UNIT SS HUMALOG AT LUNCH AND DINNER. PT HAD NAUSEA THIS AM, RESOLVED WITH ZOFRAN. PT VOIDING QS, HAD BM TODAY.
--- NOTE | 2018-10-21 18:51 | NUR ---
PT ASSISTED TO WALK IN TUCKER, SBA, TOLERATED WELL. PT ASSISTED TO BATHROOM AND THEN TO BED. SCDS, AND CRYOCUFF REPLACED. PT DENIES OTHER NEEDS AT THIS TIME.
--- NOTE | 2018-10-21 18:57 | NUR ---
RECIEVED CHANGE OF SHIFT REPORT FROM FRANCHESCA EDMOND. PATIENT RESTING AWAKE IN BED WITH FAMILY AT BEDSIDE. ON-Q STILL SET AT 8 DURING CHANGE OF SHIFT REPORT. SMALL AMOUNT OF DRAINAGE ON GLORIA DRESSING, NO NEW DRAINAGE NOTED. SCDs AND TAURUS HOSE IN PLACE. CRYOCUFF IN PLACE. CALL LIGHT WITHIN REACH. NO MORE NEEDS AT THIS TIME.
--- NOTE | 2018-10-21 20:47 | NUR ---
ASSESSMEMT COMPLETE. MEDICATION ADMINISTERED PER OCT ORDER. INSULIN COVEREAGE PROVIDED PER OCT ORDER. PATIENT DENIES PAIN, CHEST PAIN, SOB, OR DIFFICULTY BREATHING. GLORIA DRESSING SHOWS SMALL AMOUNT OF RED DRAINAGE, NO NEW DRAINAGE NOTED. GLORIA DRAIN FLASHING GREEN LIGHT. ON-Q PUMP STILL SET AT 8. TAURUS HOSE AND SCDS IN PLACE. PATIENT REFUSED HEEL PROTECTORS. CRYOCUFF IN PLACE, FRESH ICE PLACED IN CRYOCUFF. FRESH WATER BROUGHT TO PATIENT. FAMILY AT BEDSIDE. CALL LIGHT WITHIN REACH. NO MORE NEEDS AT THIS TIME. STRONG PERIPHERAL PULSES.
--- NOTE | 2018-10-21 22:16 | NUR ---
ROUNED ON PATIENT TO ADMINSTER SCHEDULED MEDICATION PER OCT ORDER. PATIENT REQUESTED THAT THIS RN ASSESS GLORIA DRESSING AND DRAIN. GLORIA DRAIN FLASHING GREEN LIGHT AND APPEARS TO BE FUNCTIONING PROPERLY. CRYOCUFF IN PLACE. CALL LIGHT WITHIN REACH. NO MORE NEEDS AT THIS TIME.
--- NOTE | 2018-10-21 23:29 | NUR ---
ROUNDED ON PATIENT AWAKE IN BED. PROVIDED PATIENT WITH A SUGAR FREE AND CARB FREE DIET COKE PER PATIENT REQUEST. CALL LIGHT WITHIN REACH. NO MORE NEEDS AT THIS TIME.
--- NOTE | 2018-10-21 23:50 | NUR ---
ASSISTED PATIENT TO THE BATHROOM TO USE THE URINAL. 1 PA WITH WALKER. PATIENT IS BACK IN BED. CRYO SCD ARE BACK ON. CALL LIGHT WITHIN REACH.
--- NOTE | 2018-10-22 00:31 | NUR ---
ROUNDED ON PATIENT RESTING IN BED WITH EYES CLOSED, RESPIRATORY RATE IS EVEN AND UNLABORED. RR: 14. CALL LIGHT WITHIN REACH.
--- NOTE | 2018-10-22 01:55 | NUR ---
ROUNDED ON PATIENT RESTING IN BED WITH EYES CLOSED, RESPIRATORY RATE IS EVEN AND UNLABORED. NO SIGN OF TENSING OR GRIMACING. NO SIGNS OF RESPIRATORY DISTRESS. CALL LIGHT WITHIN REACH.
--- NOTE | 2018-10-22 03:38 | NUR ---
ASSESSMENT COMPLETE. PATIENT AMBULATED TO RESTROOM A SBA WITH FWW, PATIENT TOLERATED WELL, DENIES DIZZINESS OR LIGHTHEADEDNESS. PATIENT REPORTS PAIN IS A "2/10" IN LEFT KNEE, DENIES WANTING PRN PAIN MEDICATION. FRESH ICE PLACED IN CRYOCUFF, CRYOCUFF IN PLACE. TAURUS HOSE AND SCDs IN PLACE. SMALL AMOUNT OF DRY, RED DRAINAGED NOTED ON GLORIA DRESSING, NO NEW DRAINAGE NOTED, GLORIA DRAIN FLASHING GREEN LIGHT. ON-Q STILL SET TO 8. PATIENT DENIES CHEST PAIN, SOB, OR DIFFICULTY BREATHING. IV ASSESSED TO PATENT, WNL. CALL LIGHT WITHIN REACH. NO MORE NEEDS AT THIS TIME.
--- NOTE | 2018-10-22 03:40 | NUR ---
ASSISTED PATIENT TO THE BATHROOM TO USE THE URINAL USING WALKER. PATIENT IS BACK IN BED. FRANCHESCA GUSTAFSON WAS WITH PATIENT. CRYO AND SCD ARE BACK ON. CRYO CUFF AND ICE WATER REFILLED.
--- NOTE | 2018-10-22 05:16 | NUR ---
PATIENT SLEPT ON AND OFF THROUGHTOUT THE SHIFT. FAMILY AT BEDSIDE. NO PRN PAIN MEDICATION THIS SHIFT. SBA WITH FWW TO BATHROOM. ON-Q PUMP, STILL SET AT 8. GLORIA DRESSING SHOWS SMALL AMOUNT OF DRY, RED DRAINAGE, NO NEW DRAINAGE NOTED. CRYOCUFF IN PLACE ON LEFT KNEE. TAURUS HOSE. PATIENT REFUSED HEEL PROTECTORS. ACCU CHECK WITH SLIDING SCALE. GLORIA DRAIN FLASHING GREEN LIGHT.
--- NOTE | 2018-10-22 05:37 | NUR ---
ROUNDED ON PATIENT FOR SCHEDULED PAIN MEDICATION PER MAR ORDER. PATIENT REPORTS "4/10" PAIN IN LEFT KNEE THAT COMES AND GOES. PATIENT DENIES WANTING PRN PAIN MEDICATION AT THIS TIME, PATIENT WOULD LIKE TO WAIT AND SEE IF SCHEDULED PAIN MEDICATION WILL HELP BEFORE TAKING PRN PAIN MEDICATION. THIS RN EDUCATED PATIENT TO NOTIFY NURSING STAFF IF PATIENT NEEDS INTERVENTIONS FOR PAIN MANAGEMENT, PATIENT EXPRESSED UNDERSTANDING. CALL LIGHT WITHIN REACH. NO MORE NEEDS AT THIS TIME.
--- NOTE | 2018-10-22 06:53 | NUR ---
ROUNDED ON PATIENT LAYING AWAKE IN BED. PATIENT REPORTS PAIN A "2/10" IN LEFT KNEE. PATIENT DENIES WANTING PRN PAIN MEDICATION AT THIS TIME. CALL LIGHT WITHIN REACH. NO MORE NEEDS AT THIS TIME.
--- NOTE | 2018-10-22 07:25 | NUR ---
BEDSIDE HANDOFF REPORT RECIEVED FROM RESTAURANT SHIFT LEADER RN. PT RESTING IN BED. PT DENIES NEEDS AT THIS TIME.
--- NOTE | 2018-10-22 08:30 | NUR ---
PATIENT UP TO BATHROOM AND BACK TO BED, SBA FWW. CALL LIGHT IN REACH. NO FURTHER NEEDS AT THIS TIME.
--- NOTE | 2018-10-22 08:45 | NUR ---
PT RESTIGN IN BED. PT RATING PAIN 2/10 AT REST, 4/10 WITH WALKING, PT STATES PAIN IS TOLERABLE AND DECLINED PRN PAIN MEDICATION. PT ON ROOM AIR, LUNG SOUNDS CLEAR. PT DENIES NAUSEA, TOLERATING ADA DIET, BG 96, SS HUMALOG HELD. PT WITH GLORIA DRESSING IN PLACE, DRIED DRAINAGE UNCHANGED FROM YESTERDAY EVENING. ON Q PUMP DIALED TO 8. SCDS, TAURUS HOSE AND CRYOCUFF IN PLACE, PT REFUSING HEEL PROTECTORS. CMS INTACT, WITHOUT EDEMA. PT HAD BM THIS AM, SENNA AND MIRALAX HELD. PT DENIES OTHER NEEDS AT THIS TIME. PT EXPECTING TO DISCHARGE TODAY, DISCUSSED DISCHARGE PLAN.
--- NOTE | 2018-10-22 10:05 | NUR ---
PATIENT IN BED WATCHING TV. CRYO CHECKED. FRESH WATER GIVEN. CALL LIGHT IN REACH. NO FURTHER NEEDS AT THIS TIME
[2018-10-22] MEDS ORDERED: CELECOXIB200 MG PO (11:13)
[2018-10-22] MEDS ORDERED: TYLENOL EXTRA500 MG PO (11:14)
[2018-10-22] MEDS ORDERED: OXYCODONE HCL5 MG PO (11:14)
[2018-10-22] MEDS ORDERED: GABAPENTIN300 MG PO (11:15)
[2018-10-22] MEDS ORDERED: HEALTHYLAX17 GM PO (11:15)
[2018-10-22] MEDS ORDERED: SENNA LAX8.6 MG PO (11:15)
--- NOTE | 2018-10-22 12:27 | NUR ---
FAXED CHART NOTES AND ORDERS FOR [facility] PT TO INCLUDE FACE SHEET, H AND P, OP NOTE, PROG NOTES, PT AND OT EVAL AND NOTES. RECIEVED FAX CONFIRMATION.
--- NOTE | 2018-10-22 13:07 | NUR ---
PT RESTING, HIS IN RM. WILL CHECK BACK WITH PT
--- NOTE | 2018-10-24 07:38 | DS ---
[facility] [address], [place] [address] Signed ADMISSION DATE: 10/20/2018 DISCHARGE DATE: 10/22/2018 ADMISSION DIAGNOSIS: Degenerative joint disease, left knee. DISCHARGE DIAGNOSIS: Degenerative joint disease, left knee. PROCEDURE PERFORMED: Left total knee arthroplasty with computer navigation. BRIEF HISTORY: Yoel is a 73-year-old gentleman with bilateral knee arthritis. He had undergone right total knee last year with some significant nausea, vomiting, and pain control issues. He wished to proceed with the left this year. Risks, benefits, and alternatives were discussed with him and he elected to proceed. Once consent was obtained, he was taken to the operating room, underwent the above-named procedure. He tolerated this well, was taken to the recovery room and subsequently to the orthopedic floor. He did extremely well postoperatively. No nausea or vomiting, was able to walk on the day of surgery and had control of his pain without any narcotics actually. He was able to go up and down the stairs, up and down the hallway by the day of discharge with good safety profile. He will be discharged to outpatient physical therapy. He will notify me of any problems in the interim, otherwise we will see him on Saturday for dressing change. Jin Tavares MD BA/[place] /[id number] Copies: ~ Electronically Signed By: JIN TAVARES MD 10/24/18 0738 PATIENT NAME: CANDELARIOYOEL MADDIE DISCHARGE SUMMARY DATE OF : 47 REPORT #: [id number] PHYSICIAN: JIN TAVARES MD PCP: NO PRIMARY CARE PHYSICIAN REPORT IS CONFIDENTIAL AND NOT TO BE RELEASED WITHOUT AUTHORIZATION
== END 2018-10-22 13:07 | disposition home or self-care (01) | DRG 470 ==
LOC: DSVR 10-20 05:30 → MS 10-20 05:30
PROVIDERS: ADMIT Specialist
PROC: 8E0YXBZ Computer Assisted Procedure of Lower Extremity (ICD-10-PCS; 2018-10-20)
PROC: 3E0R3BZ Introduction of Anesthetic Agent into Spinal Canal, Percutaneous Approach (ICD-10-PCS; 2018-10-20)
PROC: 3E0R33Z Introduction of Anti-inflammatory into Spinal Canal, Percutaneous Approach (ICD-10-PCS; 2018-10-20)
PROC: 0SRD0J9 Replacement of Left Knee Joint with Synthetic Substitute, Cemented, Open Approach (ICD-10-PCS; principal; 2018-10-20 06:45)
DX: M17.12 Unilateral primary osteoarthritis, left knee (principal); G89.18 Other acute postprocedural pain; E11.9 Type 2 diabetes mellitus without complications; I10 Essential (primary) hypertension; E78.00 Pure hypercholesterolemia, unspecified; E66.9 Obesity, unspecified; Z68.34 Body mass index [BMI] 34.0-34.9, adult; Z96.651 Presence of right artificial knee joint; Z79.899 Other long term (current) drug therapy; Z79.84 Long term (current) use of oral hypoglycemic drugs; Z88.5 Allergy status to narcotic agent; Z88.8 Allergy status to other drugs, medicaments and biological substances
CPT/HCPCS: 01402; 36415; 64447; 64450; 76942; 80048; 85025; 97110; 97116; 97162; 97530; C1713; C1776; J0131; J0690; J1100; J1815; J2250; J2370; J2704; J2795; J3010; J7120

== ENCOUNTER 2022-04-25 22:04 | Emergency (ER) | payer MEDICARE, OTHER ==
[~2022-04-25] VITALS: Ht 172.7 cm; Wt 103.4 kg
[~2022-04-25 22:04] MED LIST changes: +CELECOXIB200 MG PO; +GABAPENTIN300 MG PO; +HEALTHYLAX17 GM PO; +SENNA LAX8.6 MG PO; +TYLENOL EXTRA500 MG PO
[2022-04-26] MEDS ORDERED: CYCLOBENZAPRINE10 MG PO (00:56)
--- NOTE | 2022-04-27 17:48 | EKG ---
[facility] [address] [place] [address] Signed Sinus rhythm with frequent premature ventricular complexes Otherwise normal ECG No previous ECGs available Confirmed by LARRY BULL MD ([id number]) on 04/27/2022 5:48:22 PM Electronically Signed By: LARRY BULL MD 04/27/22 1748 PATIENT NAME: YOEL PALOMINO MADDIE Electrocardiogram DATE OF : 47 PHYSICIAN: LARRY BULL MD REPORT #: [id number] REPORT IS CONFIDENTIAL AND NOT TO BE RELEASED WITHOUT AUTHORIZATION
== END 2022-04-26 01:26 | disposition home or self-care (01) ==
LOC: ED 22:04
DX: R07.89 Other chest pain (principal); I10 Essential (primary) hypertension; E78.5 Hyperlipidemia, unspecified; E11.9 Type 2 diabetes mellitus without complications; Z87.891 Personal history of nicotine dependence; Z88.6 Allergy status to analgesic agent; Z88.8 Allergy status to other drugs, medicaments and biological substances; Z79.899 Other long term (current) drug therapy
CPT/HCPCS: 36415; 71045; 80053; 83735; 84484; 85025; 93005; 93010; 99285-25; A9270; J7030

== ENCOUNTER 2025-04-17 05:37 | Emergency (ER) | payer MEDICARE, OTHER ==
[~2025-04-17] VITALS: Ht 172.7 cm; Wt 98.6 kg
[~2025-04-17 05:37] MED LIST changes: +CYCLOBENZAPRINE10 MG PO
[2025-04-17] MEDS ORDERED: METFORMIN HCL500 M1 PO (06:02)
[2025-04-17] MEDS ORDERED: MAXITROL EYE DRO5 ML OPTH (06:09)
[2025-04-17] MEDS ORDERED: NEOMYCIN/POLYMYXIN/DEXAMETH 3.5 GM TUBE ONE (06:11)
[2025-04-17] MEDS ORDERED: NEOMYCIN/POLYMYXIN/DEXAMETH OPTH SUSPENSION BOTTLE OS ONE (06:15)
[2025-04-17 06:29] VITALS: BP 158/84
== END 2025-04-17 06:30 | disposition home or self-care (01) ==
LOC: ED 05:37
DX: H10.9 Unspecified conjunctivitis (principal); I10 Essential (primary) hypertension; E78.5 Hyperlipidemia, unspecified; E11.9 Type 2 diabetes mellitus without complications; N40.0 Benign prostatic hyperplasia without lower urinary tract symptoms; Z87.891 Personal history of nicotine dependence; Z88.8 Allergy status to other drugs, medicaments and biological substances; Z88.5 Allergy status to narcotic agent; Z79.84 Long term (current) use of oral hypoglycemic drugs; Z79.899 Other long term (current) drug therapy
CPT/HCPCS: 99283